=== PATIENT | male | born 1990 | race Two or more races ===

== ENCOUNTER 2025-01-06 10:08 | Emergency (ER) | payer BC, OTHER ==
[~2025-01-06] VITALS: Ht 177.8 cm; Wt 192.0 kg
[~2025-01-06 10:08] MED LIST: UNK PAIN MED; UNKNOWN ABX
--- NOTE | 2025-01-06 10:29 | ED.PDOC ---
GI ASSESSMENT HPI Comments 34y M who presents to the ED for chief complaint of abdominal pain. Pt states he has been having abdominal pain since last night PM. Pt states he had EGD procedure yesterday and states since, he has been having RUQ abdominal pain. Pt states the pain is 10/10, constant, non-radiating burning in nature, with no associated exacerbating or relieving factors. Pt has associate nausea and vomiting but otherwise diarrhea, fever, cough, chills or associated symptoms. Pt has noted BP of 131/98 with otherwise stable vitals. . Pt denies changes to diet or recent travel. Pt otherwise denies any other symptoms at this time Chief Complaint: Abdominal Pain Time Seen by MD: 10:28 Primary Care Provider: DENISE/DR NIXON Reviewed Notes: Medications, Allergies Allergies: Coded Allergies: NO KNOWN ALLERGIES (Unverified , 11/06/10) Home Meds Reported Medications [Unk Pain Med] No Conflict Check 11/14/10 [Unknown Abx] No Conflict Check 11/14/10 Information Source: Patient, Significant Other Mode of Arrival: Ambulatory Past Medical History PAST MEDICAL HISTORY: Denies Surgical History: Tonsillectomy Family History Family History: No family hx of DM Social History Smoker: Non-Smoker Alcohol: Denies ETOH Use Drugs: Denies Drug Use Lives In: Home All Other Systems: Reviewed and Negative (see HPI) Physical Exam General Appearance: Moderate Distress, Obese HEENT: Normal ENT Inspection, Pale Conjunt[place]ae (L), Pale Conjuntivae (R), PERRL/EOMI Neck: Full Range of Motion, Non-Tender, Normal, Normal Inspection Respiratory: Chest Non-Tender, Lungs Clear, No Accessory Muscle Use, No Respiratory Distress, Normal Breath Sounds Cardiovascular: No Edema, No JVD, No Murmur, No Gallop, Normal Peripheral Pulses, Regular Rate/Rhythm Breast Exam: Deferred Gastrointestinal: Epigastric, No Organomegaly, No Pulsatile Mass, Normal Bowel Sounds, Soft, Tenderness Genitalia: Deferred Pelvic: Deferred Rectal: Deferred Extremities: No calf tenderness, Normal capillary refill, Normal inspection, Normal range of motion, Non-tender, No pedal edema Neurologic: Alert, grinder set up operator thread II-XII nml as Tested, No Motor Deficits, Normal Affect, Normal Mood, No Sensory Deficits Cerebellar Function: Normal Reflexes: Normal Skin: Dry, Normal Color, Warm Peripheral Pulses: 1+ carotid (R), 1+ carotid (L) Lymphatic: No Adenopathy Was a procedure done? Was a procedure done?: No GI differential Dx Differential Diagnosis: Esophagitis, Gastritis/PUD, Gastroenteritis, Hernia, Pancreatitis, UTI, Dehydration, Electrolyte Imbalance, Food Poisoning, Bacterial, Viral, Hypovolemia, Anemia X-Ray, Labs, Meds, VS Vital Signs Date Time Temp Pulse Resp B/P (MAP) Pulse Ox O2 Delivery O2 Flow Rate FiO2 01/06/25 14:30 88 17 116/82 (93) 94 01/06/25 12:19 84 11 110/73 (85) 97 01/06/25 12:16 85 10 110/73 01/06/25 10:54 93 10 97 Room Air* 0 21 01/06/25 10:53 98.4 93 9 114/84 (94) 97 98.4 01/06/25 10:45 93 16 114/84 01/06/25 10:09 99.2 100 18 131/98 98 99.2 Lab Test 01/06/25 14:08 01/06/25 10:35 Range/Units Urine Color Dark yellow Yellow Urine Clarity Turbid H Clear Urine pH 5.5 5.0-9.0 Urine Specific [place] 1.029 1.001-1.035 Urine Protein 1+ H Negative Urine Ketones 4+ H Negative Urine Blood Negative Negative /uL Urine Nitrite Negative Negative Urine Bilirubin Negative Negative Urine Urobilinogen 2 H Negative mg/dL Urine Leukocyte Esterase Negative Negative /uL Urine RBC 1 0 - 3 /hpf Urine Microscopic WBC 15 H 0-3 /HPF Urine Squamous Epithelial Cells Few <5 /hpf Urine Bacteria None seen None Seen /hpf Urine Mucus Few None Seen Urine Glucose Trace Normal mg/dL White Blood Count 3.8 L 4.4-10.8 10^3/uL Red Blood Count 4.53 4.5-5.90 10^6/uL Hemoglobin 9.1 L 13.5-17.5 g/dL Hematocrit 29.7 L 41.0-53.0 % Mean Corpuscular Volume 65.6 L 80.0-100.0 fL Mean Corpuscular Hemoglobin 20.0 L 28.0-32.0 pg Mean Corpuscular Hemoglobin Concent 30.5 L 32.0-36.0 g/dL Red Cell Distribution Width 16.7 H 11.8-14.3 % Platelet Count 235 140-450 10^3/uL Mean Platelet Volume 8.7 6.9-10.8 fL Neutrophils (%) (Auto) 63.1 37.0-80.0 % Lymphocytes (%) (Auto) 27.4 10.0-50.0 % Monocytes (%) (Auto) 8.9 0.0-12.0 % Eosinophils (%) (Auto) 0.2 0.0-7.0 % Basophils (%) (Auto) 0.4 0.0-2.0 % Neutrophils # (Auto) 2.4 1.6-8.6 10 ^3/uL Lymphocytes # (Auto) 1.0 0.4-5.4 10 ^3/uL Monocytes # (Auto) 0.3 0-1.3 10 ^3/uL Eosinophils # (Auto) 0 0-0.8 10 ^3/uL Basophils # (Auto) 0 0-0.2 10 ^3/uL Nucleated Red Blood Cells 0.2 % Platelet Estimate Adequate Hypochromasia (manual) Slight Microcytosis Moderate Prothrombin Time 11.9 H 9.3-11.8 sec Prothrombin Time INR 1.14 0.9-1.15 Activated Partial Thromboplast Time 25.8 24.5-34.5 SEC Sodium Level 139 136-145 mmol/L Potassium Level 3.6 3.5-5.1 mmol/L Chloride Level 102 98-107 mmol/L Carbon Dioxide Level 24 20-31 mmol/L Anion Gap 13 5-15 Blood Urea Nitrogen 7 L 9-23 mg/dL Creatinine 0.74 0.700-1.30 mg/dL Glomerular Filtration Rate Calc 122 >90 mL/min BUN/Creatinine Ratio 9.5 L 10.0-20.0 Serum Glucose 160 H 74-106 mg/dL Calcium Level 9.4 8.7-10.4 mg/dL Magnesium Level 1.7 1.6-2.6 mg/dL Total Bilirubin 1.4 H 0.2-1.0 mg/dL Aspartate Amino Transferase (AST) 18 13-40 U/L Alanine Aminotransferase (ALT) 14 7-40 U/L Alkaline Phosphatase 78 46-116 U/L Total Protein 7.5 5.7-8.2 g/dL Albumin 4.8 3.2-4.8 g/dL Lipase 31 12-53 U/L Current Medications Medications (Trade) Dose Ordered Sig/Sasha Route Start Time Stop Time Status Last Admin Ondansetron HCl (Zofran) 4 mg ONCE ONCE IV 01/06/25 10:30 01/06/25 10:31 DC 01/06/25 10:42 Sodium Chloride 1,000 ml @ 1,000 mls/hr Q1H ONCE IVB 01/06/25 10:30 01/06/25 11:30 DC 01/06/25 10:41 Hydromorphone HCl (Dilaudid Injection) 0.5 mg ONCE ONCE IV 01/06/25 10:30 01/06/25 10:31 DC 01/06/25 10:45 X-Ray, Labs, Meds, VS Comment Course in the emergency department eventful patient came in because of severe abdominal pain with nausea and vomiting and very pale the patient yesterday had his EGD the found that he had an ulcer and was cauterized this morning he came up because of severe abdominal pain Blood pressure 131/98 CBC 3800 with 63% neutrophils H&H 9.1 and 29.7 with microcytosis INR 1.14 Magnesium 1.7 Lipase 31 CMP negative Urine negative Patient will be admitted for further care Time of 1ST Reevaluation: 10:28 Reevaluation 1ST: Unchanged Time of 2ND Reevaluation: 15:51 Reevaluation 2ND: Unchanged Patient Education/Counseling: Diagnosis, Treatment, Prognosis Family Education/Counseling: Diagnosis, Treatment, Prognosis, Other ( at bedside) SEPSIS Sepsis Screen Date sepsis recognized/suspect: Jan 06, 2025 Time Sepsis recognized/suspect: 1011 Recent Procedure: No On Antibiotic Therapy: No Respiratory Rate >20: No Heart Rate >90: Yes Temp<36 C (96.8 F) or >38.3 C: No SBP <90 or MAP <65 mmHG: No New Acute Mental Status Change: No Is the patient on CPAP, BIPAP,: No Physician Orders Heplock Iv (01/06/25 10:25) Vital Signs Date Time Temp Pulse Resp B/P (MAP) Pulse Ox O2 Delivery O2 Flow Rate FiO2 01/06/25 14:30 88 17 116/82 (93) 94 01/06/25 12:19 84 11 110/73 (85) 97 01/06/25 12:16 85 10 110/73 01/06/25 10:54 93 10 97 Room Air* 0 21 01/06/25 10:53 98.4 93 9 114/84 (94) 97 98.4 01/06/25 10:45 93 16 114/84 01/06/25 10:09 99.2 100 18 131/98 98 99.2 Laboratory Tests Test 01/06/25 10:35 White Blood Count 3.8 10^3/uL (4.4-10.8) L Medications Medications Dose Ordered Sig/Sasha Route Start Time Stop Time Status Last Admin Dose Admin Hydromorphone HCl 0.5 mg ONCE ONCE IV 01/06/25 10:30 01/06/25 10:31 DC 01/06/25 10:45 Ondansetron HCl 4 mg ONCE ONCE IV 01/06/25 10:30 01/06/25 10:31 DC 01/06/25 10:42 Sodium Chloride 1,000 ml @ 1,000 mls/hr Q1H ONCE IVB 01/06/25 10:30 01/06/25 11:30 DC 01/06/25 10:41 Departure 1 Departure Time of Disposition: 15:52 Impression: Primary Impression: Peptic ulcer disease Additional Impressions: Acute abdominal pain Anemia Disposition: ADMITTED INPATIENT Condition: Fair Critical Care Note Critical Care Time?: No Stability Stability form required: Yes Heart Score Heart Score: Heart Score Response (Comments) Value History N/A 0 EKG N/A 0 Age <45 0 Risk Factors No known risk factors 0 Troponin N/A 0 Total 0 I personally scribed for JOSE STERN MD ([email or web address]) on 01/06/25 at 10:29. Electronically submitted by Christopher Grcaia ([email or web address]). JOSE STERN MD Jan 06, 2025 10:29
[2025-01-06] MEDS: SODIUM CHLORIDE 0.9% 1,000 ML IVB ONE (10:41)
[2025-01-06] MEDS: ONDANSETRON HCL 4 MG/2 ML VIAL IV ONE (10:42)
[2025-01-06] MEDS: HYDROmorphone HCL 2 MG/ML VL/or syr IV ONE ×2 (10:45→18:05)
[2025-01-06 10:53] VITALS: TEMP 98.4
[2025-01-06 10:54] VITALS: PULSE 93; RESP 10; O2SAT 97
[2025-01-06 11:04] LABS: Hematocrit 29.7 % (41.0-53.0); Hemoglobin 9.1 g/dL (13.5-17.5); Mean Corpuscular Hemoglobin 20.0 pg (28.0-32.0); Mean Corpuscular Volume 65.6 fL (80.0-100.0); Nucleated Red Blood Cells % 0.2 %
[2025-01-06 11:12] LABS: INR 1.14 (0.9-1.15); Partial Thromboplastin Time 25.8 SEC (24.5-34.5); Prothrombin Time 11.9 sec (9.3-11.8)
[2025-01-06 11:13] LABS: Alanine Aminotransferase 14 U/L (7-40); Albumin 4.8 g/dL (3.2-4.8); Alkaline Phosphatase 78 U/L (46-116); Anion Gap 13 (5-15); BUN/Creatinine Ratio 9.5 (10.0-20.0); Blood Urea Nitrogen 7 mg/dL (9-23); Calcium 9.4 mg/dL (8.7-10.4); Carbon Dioxide 24 mmol/L (20-31); Chloride 102 mmol/L (98-107); Glucose 160 mg/dL (74-106); Lipase 31 U/L (12-53); Magnesium 1.7 mg/dL (1.6-2.6); Potassium 3.6 mmol/L (3.5-5.1); Sodium 139 mmol/L (136-145); Total Protein 7.5 g/dL (5.7-8.2)
[2025-01-06 11:14] LABS: Bilirubin, Total 1.4 mg/dL (0.2-1.0)
[2025-01-06 15:27] LABS: Urine Protein, UAD 1+ (Negative)
[2025-01-06] MEDS: IOHEXOL 300 MG/ML 100ML BOTTLE IJ ONE (16:49)
--- NOTE | 2025-01-06 17:46 | DVH ---
COMPUTERIZED TOMOGRAPHY ABDOMEN WITH CONTRAST REASON FOR EXAM: Acute abdominal pain possible perforated ulcer COMPARISON: CT ABD/PEL W-IV on DOS: 10/22/24, CT ABD/PEL W - IV on DOS: 10/22/24 TECHNIQUE: The exam was performed on a Multidetector scanner. Spiral scans were acquired from the jennifer phragm to the iliac bones after administration of IV contrast. 2-D coronal and sagittal reformatted i mages were provided. Radiation optimization: All CT scans at this facility use at least one of these dose optimization techniques: Automated exposure control mA and/or kV adjustment per patient size (in cludes targeted exams where dose is matched to clinical indication) or iterative reconstruction. CONTRAST ADMINISTRATION: 90 mL omnipaque 300 intravenously RADIATION DOSE: CTDI: 21 mGy DLP: 1247 mGy-cm FINDINGS: The visualized lung bases are grossly clear. There is no pleural effusion. There is no pericardial e ffusion. There is thickening of the distal esophagus suggestive of esophagitis. The spleen is not enlarged. The liver is normal in size and contour. There is hypodensity adjacent to the falciform ligament likely representing focal fatty infiltration. The gallbladder is surgically a bsent. The pancreas is within normal limits. The adrenal glands are normal. The kidneys enhance symme trically. No solid renal mass is identified. There is no hydronephrosis of either kidney. The urinary bladder appears thick walled, concerning for cystitis. The prostate and seminal vesicles are within normal limits. There is no significant colonic stool burden. The appendix is normal. There is no pat hologic distention of the small bowel to suggest bowel obstruction. There is no pneumoperitoneum. Th ere is no free fluid in the abdomen or pelvis. There is no pathologic lymphadenopathy by size criter ia. There is no abdominal aortic aneurysm. No acute osseous abnormality is identified. There is mode rate disc height loss with endplate hypertrophy L3-S1 causing at least moderate spinal canal narrowin g at L3-L4 and L4-L5. IMPRESSION: No intra-abdominal free fluid or gas to suggest perforated viscus. Thickening of the distal esophagus suggestive of esophagitis. Correlate clinically for possible GERD . Thick-walled urinary bladder suggestive of cystitis. Correlate clinically and with urinalysis. Moderate degenerative disc disease L3-S1 with endplate hypertrophy causing at least moderate spinal c anal narrowing at L3-L4 and L4-L5.
[2025-01-06] MEDS: PANTOPRAZOLE 40 MG/10 ML VIAL INJ IV ONE (18:04)
[2025-01-06] MEDS: SUCRALFATE 1 GM/10 ML ORAL SUSP PO ONE (18:05)
[2025-01-06] MEDS: LIDOCAINE VISCOUS 2% 15ML UD PO ONE (18:07)
[2025-01-06] MEDS: MAALOX PLUS or MAALOX 30 ML PO ONE (18:07)
[2025-01-06] MEDS ORDERED: PANT40TA2 PO (18:48)
[2025-01-06] MEDS ORDERED: LIDO2SOL26 MT (18:53)
[2025-01-06] MEDS ORDERED: SUCR1SUS26 PO (18:55)
[2025-01-06] MEDS ORDERED: HYDR-4902 PO (19:07)
[2025-01-06] MEDS ORDERED: NALO4SPR2 (19:09)
--- NOTE | 2025-01-06 19:29 | DVHDS2 ---
Discharge Summary Date of Admission Date of Discharge: Jan 06, 2025 Labs/Diagnostic Data: Laboratory Results Test 01/06/25 14:08 01/06/25 10:35 Urine Color Dark yellow (Yellow) Urine Clarity Turbid (Clear) Urine pH 5.5 (5.0-9.0) Urine Specific [place] 1.029 (1.001-1.035) Urine Protein 1+ (Negative) Urine Ketones 4+ (Negative) Urine Blood Negative /uL (Negative) Urine Nitrite Negative (Negative) Urine Bilirubin Negative (Negative) Urine Urobilinogen 2 mg/dL (Negative) Urine Leukocyte Esterase Negative /uL (Negative) Urine RBC 1 /hpf (0 - 3) Urine Microscopic WBC 15 /HPF (0-3) Urine Squamous Epithelial Cells Few /hpf (<5) Urine Bacteria None seen /hpf (None Seen) Urine Mucus Few (None Seen) Urine Glucose Trace mg/dL (Normal) White Blood Count 3.8 10^3/uL (4.4-10.8) Red Blood Count 4.53 10^6/uL (4.5-5.90) Hemoglobin 9.1 g/dL (13.5-17.5) Hematocrit 29.7 % (41.0-53.0) Mean Corpuscular Volume 65.6 fL (80.0-100.0) Mean Corpuscular Hemoglobin 20.0 pg (28.0-32.0) Mean Corpuscular Hemoglobin Concent 30.5 g/dL (32.0-36.0) Red Cell Distribution Width 16.7 % (11.8-14.3) Platelet Count 235 10^3/uL (140-450) Mean Platelet Volume 8.7 fL (6.9-10.8) Neutrophils (%) (Auto) 63.1 % (37.0-80.0) Lymphocytes (%) (Auto) 27.4 % (10.0-50.0) Monocytes (%) (Auto) 8.9 % (0.0-12.0) Eosinophils (%) (Auto) 0.2 % (0.0-7.0) Basophils (%) (Auto) 0.4 % (0.0-2.0) Neutrophils # (Auto) 2.4 10 ^3/uL (1.6-8.6) Lymphocytes # (Auto) 1.0 10 ^3/uL (0.4-5.4) Monocytes # (Auto) 0.3 10 ^3/uL (0-1.3) Eosinophils # (Auto) 0 10 ^3/uL (0-0.8) Basophils # (Auto) 0 10 ^3/uL (0-0.2) Nucleated Red Blood Cells 0.2 % Platelet Estimate Adequate Hypochromasia (manual) Slight Microcytosis Moderate Prothrombin Time 11.9 sec (9.3-11.8) Prothrombin Time INR 1.14 (0.9-1.15) Activated Partial Thromboplast Time 25.8 SEC (24.5-34.5) Sodium Level 139 mmol/L (136-145) Potassium Level 3.6 mmol/L (3.5-5.1) Chloride Level 102 mmol/L (98-107) Carbon Dioxide Level 24 mmol/L (20-31) Anion Gap 13 (5-15) Blood Urea Nitrogen 7 mg/dL (9-23) Creatinine 0.74 mg/dL (0.700-1.30) Glomerular Filtration Rate Calc 122 mL/min (>90) BUN/Creatinine Ratio 9.5 (10.0-20.0) Serum Glucose 160 mg/dL (74-106) Calcium Level 9.4 mg/dL (8.7-10.4) Magnesium Level 1.7 mg/dL (1.6-2.6) Total Bilirubin 1.4 mg/dL (0.2-1.0) Aspartate Amino Transferase (AST) 18 U/L (13-40) Alanine Aminotransferase (ALT) 14 U/L (7-40) Alkaline Phosphatase 78 U/L (46-116) Total Protein 7.5 g/dL (5.7-8.2) Albumin 4.8 g/dL (3.2-4.8) Lipase 31 U/L (12-53) Other Laboratory Tests 01/06/25 10:35 Brief Hx & Hospital Course: Patient is a 34-year-old male 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 Patient was recently seen at [facility] and underwent EGD the day prior to admission. Patient presented today because he ended up having severe epigastric pain for few episodes of vomiting some blood. 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 Chart review shows that patient was seen at [facility] and had an EGD in November 2024 which showed grade D esophagitis. Patient states he does not take any medications as his PCP discontinued them. Patient notes that he was previously on Protonix but currently is not taking anything. On arrival, patient's vitals were within normal limits. Hemoglobin was noted to be 9.1. BMP was within normal limits. Patient underwent CT abdomen pelvis with IV contrast which showed thickening of the distal esophagus suggestive of esophagitis. No intra-abdominal free fluid or gas was noted. Patient was given Protonix, sucralfate, Mylanta, viscous lidocaine, 1 L NS bolus and Dilaudid. Patient was monitored for several hours. Patient had resolution of pain. His GI physician was consulted and plan of care was discussed. Patient was prescribed Protonix 40 mg p.o. twice daily, viscous lidocaine, sucralfate, and [place] for severe esophagitis pain. Patient has an appointment scheduled with GI. Patient advised to have a clear liquid diet and advance slowly with soft diet. Patient is advised to avoid large food pieces or hard food pieces. Patient was discharged in stable condition. [facility] case management arrange follow-up appointments. Condition at Discharge: Good Final Diagnosis/Problems List Esophagitis Grade D Secondary Diagnosis: Morbid Obesity Discharge Disposition: Home Discharge Instruct/Medications Diet: See Comment Diet comment: Liquid diet , advance to soft like mashed potatoes, rice as tolerated. Avoid spices, hard foods, large bites. Activity: See Comment Medications: Protonix Sucralfate Viscous Lidocaine Scheduled Lidocaine HCl (Mouth-Throat) (Lidocaine HCl Viscous), 2 % MT TID Naloxone HCl (Narcan), 4 MG NA ONCE Pantoprazole Sodium Sesquihydr (Protonix), 40 MG PO BID Sucralfate (Carafate Susp), 10 ML PO QID Scheduled PRN Hydrocodone-Acetaminophen (Hydrocodone Bitartrate/AC 5-325 mg), 1 TAB PO Q6HPRN PRN Miscellaneous Medications [Unk Pain Med], (Reported) [Unknown Abx], (Reported) Discharge Statement: "Patient was advised to return to the ER or call 911 if any headaches, dizziness, shortness of breath, chest pain, abdominal pain, bleeding, fevers, or worsening of medical condition. Patient was counseled about treatment plan, medications, possible side effects, patientverbalized understanding. All questions were answered to the best of my ability. This discharge took greater then 30 minutes in planning, reviewing documentation, counseling the patient, and discussing with other team members." ASSESSMENT ASSESSMENT Assessment Esophagitis Grade D KRISTIN ALAS DO Jan 06, 2025 19:29
[2025-01-06 19:30] VITALS: BP 108/77; PULSE 84; RESP 7; O2SAT 97
== END 2025-01-06 21:11 | disposition home or self-care (01) ==
LOC: ER 10:08
DX: K27.9 Peptic ulcer, site unspecified, unspecified as acute or chronic, without hemorrhage or perforation (principal); D64.9 Anemia, unspecified; Z79.899 Other long term (current) drug therapy; Z90.89 Acquired absence of other organs
CPT/HCPCS: 36415; 74177; 80053; 81001; 83690; 83735; 85025; 85610; 85730; 96361; 96374; 96375; 96376; 99285; J1171; J2405; J2470; J7030; Q9967

== ENCOUNTER 2025-01-28 18:49 | Emergency (ER) | payer OTHER ==
[~2025-01-28] VITALS: Ht 177.8 cm; Wt 92.2 kg
[~2025-01-28 18:49] MED LIST changes: +HYDR-4902 PO; +LIDO2SOL26 MT; +NALO4SPR2; +PANT40TA2 PO; +SUCR1SUS26 PO
--- NOTE | 2025-01-28 19:41 | ED.PDOC ---
GI ASSESSMENT HPI Comments 34-year-old male who came to ER for abdominal pain. Patient has a history of esophagitis, underwent endoscopy 3 weeks ago at [facility], had episodes of nausea and vomiting after the procedure, but was relieved with medications. For the past 2 days, epigastric abdominal pain, associated with bouts of nausea and vomiting and blood-tinged vomitus/hematemesis Chief Complaint: Abdominal Pain Time Seen by MD: 19:40 Primary Care Provider: DENISE/DR NIXON Reviewed Notes: Nurses Notes Allergies: Coded Allergies: NO KNOWN ALLERGIES (Unverified , 11/06/10) Home Meds Active Scripts Sucralfate (CARAFATE SUSP) 1 Gm/10 Ml Ss, 10 ML PO QID PRN, #1200 ML 3 Refills Prov:PATRICK JIMENES MD 01/28/25 Naloxone HCl (Narcan) 4 Mg/0.1 Ml Spr, 4 MG NA ONCE for 1 Day, #1 SPRAY Prov:KRISTIN ALAS DO 01/06/25 Hydrocodone-Acetaminophen (Hydrocodone Bitartrate/AC 5-325 mg) 1 Tab Tab, 1 TAB PO Q6HPRN PRN, #12 TAB 0 Refills Take for severe pain. Prov:KRISTIN ALAS DO 01/06/25 Sucralfate (CARAFATE SUSP) 1 Gm/10 Ml Ss, 10 ML PO QID, #1200 ML 3 Refills Prov:KRISTIN ALAS DO 01/06/25 Lidocaine HCl (Mouth-Throat) (Lidocaine HCl Viscous) 2 % Maddy, 2 % MT TID for 30 Days, #150 ML 2 Refills Tkae 10ml three times a day and swallow to help with pain. Prov:KRISTIN ALAS DO 01/06/25 Pantoprazole Sodium Sesquihydr (Protonix) 40 Mg Tab, 40 MG PO BID, #60 TAB 1 Refill Prov:KRISTIN ALAS DO 01/06/25 Reported Medications [Unk Pain Med] No Conflict Check 11/14/10 [Unknown Abx] No Conflict Check 11/14/10 Information Source: Patient Mode of Arrival: Ambulatory Timing: Days Duration: Intermittent Quality: Sharp, Stabbing Vomitus: Watery, Streaking Blood Recent: Other (Endoscopy) Recent Hx of: Other (Esophagitis) Associated sign and symptoms: Nausea, Vomiting, Hematemesis, Abdominal Pain Past Medical History PAST MEDICAL HISTORY: Denies Past Medical History (Other): Esophagitis Surgical History: Cholecystectomy, Tonsillectomy Family History Family History: No family hx of DM Social History Smoker: Non-Smoker Alcohol: Denies ETOH Use Drugs: Denies Drug Use Lives In: Home Constitutional: denies: chills, diaphoresis, fatigue, fever, malaise, sweats, weakness, others EENTM: denies: blurred vision, double vision, ear bleeding, ear discharge, ear drainage, ear pain, ear ringing, eye pain, eye redness, hearing loss, mouth pain, mouth swelling, nasal discharge, nose bleeding, nose congestion, nose pain, photophobia, tearing, throat pain, throat swelling, voice changes, others Respiratory: denies: cough, hemoptysis, orthopnea, SOB at rest, shortness of breath, SOB with excertion, stridor, wheezing, others Cardiovascular: denies: chest pain, dizzy spells, diaphoresis, Dyspnea on exertion, edema, irregular heart beat, left arm pain, lightheadedness, palpitations, PND, syncope, others Gastrointestinal: reports: abdominal pain, hematemesis, nausea, vomiting; den ies: abdomen distended, blood streaked bowels, constipated, diarrhea, dysphagia, difficulty swallowing, melena, poor appetite, poor fluid intake, rectal bleeding, rectal pain, others Genitourinary: denies: burning, dysuria, flank pain, frequency, hematuria, incontinence, penile discharge, penile sore, pain, testicle pain, testicle swelling, urgency, others Neurological: denies: dizziness, fainting, headache, left sided numbness, left sided weakness, numbness, paresthesia, pre-existing deficit, right sided numbness, right sided weakness, seizure, speech problems, tingling, tremors, weakness, others Musculoskeletal: denies: back pain, gout, joint pain, joint swelling, muscle pain, muscle stiffness, neck pain, others Integumetry: denies: bruises, change in color, change in hair/nails, dryness, laceration, lesions, lumps, rash, wounds, others Allergic/Immunocompromised: denies: Difficulty Healing, Frequent Infections, Hives, Itching, others Hematologic/Lymphatic: denies: anemia, blood clots, easy bleeding, easy bruising, swollen glands, others Endocrine: denies: excessive hunger, excessive sweating, excessive thirst, excessive urination, flushing, intolerance to cold, intolerance to heat, unexplained weight gain, unexplained weight loss, others Psychiatric: denies: anxiety, bipolar disorder, depression, hopeless, panic disorder, schizophrenia, sleepless, suicidal, others Physical Exam General Appearance: No Apparent Distress, Normal HEENT: Normal ENT Inspection, Pharynx Normal, TMs Normal Neck: Full Range of Motion, Non-Tender, Normal, Normal Inspection Respiratory: Chest Non-Tender, Lungs Clear, No Accessory Muscle Use, No Respiratory Distress, Normal Breath Sounds Cardiovascular: No Edema, No JVD, No Murmur, No Gallop, Normal Peripheral Pulses, Regular Rate/Rhythm Breast Exam: Deferred Gastrointestinal: Epigastric, No Organomegaly, No Pulsatile Mass, Normal Bowel Sounds, Soft, Tenderness Genitalia: Deferred Pelvic: Deferred Rectal: Deferred Extremities: No calf tenderness, Normal capillary refill, Normal inspection, Normal range of motion, Non-tender, No pedal edema Musculoskeletal : Apperance: Normal Neurologic: Alert, cloth folder hand II-XII nml as Tested, No Motor Deficits, Normal Affect, Normal Mood, No Sensory Deficits Cerebellar Function: Normal Reflexes: Normal Skin: Dry, Normal Color, Warm Lymphatic: No Adenopathy Was a procedure done? Was a procedure done?: No GI differential Dx Differential Diagnosis: Diverticular disease, Gastritis/PUD, Gastroenteritis, GI hemorrhage, Pancreatitis, UTI, Urolithiasis, Anemia, Esophageal Varicies X-Ray, Labs, Meds, VS Vital Signs Date Time Temp Pulse Resp B/P (MAP) Pulse Ox O2 Delivery O2 Flow Rate FiO2 01/28/25 23:15 99 19 121/83 01/28/25 23:00 99 18 100 Room Air* 0 21 21 01/28/25 22:59 98.4 99 18 121/83 (96) 100 98.4 01/28/25 20:57 97 Room Air* 0 21 01/28/25 20:56 97.7 100 16 141/83 (102) 98 97.7 01/28/25 20:55 73 12 133/72 01/28/25 18:55 98.4 110 18 115/70 98 98.4 Lab Test 01/28/25 19:47 01/28/25 19:05 Range/Units White Blood Count 5.0 4.4-10.8 10^3/uL Red Blood Count 5.37 4.5-5.90 10^6/uL Hemoglobin 10.2 L 13.5-17.5 g/dL Hematocrit 32.9 L 41.0-53.0 % Mean Corpuscular Volume 61.4 L 80.0-100.0 fL Mean Corpuscular Hemoglobin 18.9 L 28.0-32.0 pg Mean Corpuscular Hemoglobin Concent 30.8 L 32.0-36.0 g/dL Red Cell Distribution Width 16.7 H 11.8-14.3 % Platelet Count 294 140-450 10^3/uL Mean Platelet Volume 8.6 6.9-10.8 fL Neutrophils (%) (Auto) 74.5 37.0-80.0 % Lymphocytes (%) (Auto) 16.6 10.0-50.0 % Monocytes (%) (Auto) 8.6 0.0-12.0 % Eosinophils (%) (Auto) 0.0 0.0-7.0 % Basophils (%) (Auto) 0.3 0.0-2.0 % Neutrophils # (Auto) 3.8 1.6-8.6 10 ^3/uL Lymphocytes # (Auto) 0.8 0.4-5.4 10 ^3/uL Monocytes # (Auto) 0.4 0-1.3 10 ^3/uL Eosinophils # (Auto) 0 0-0.8 10 ^3/uL Basophils # (Auto) 0 0-0.2 10 ^3/uL Nucleated Red Blood Cells 0.1 % Sodium Level 144 136-145 mmol/L Potassium Level 4.1 3.5-5.1 mmol/L Chloride Level 104 98-107 mmol/L Carbon Dioxide Level 27 20-31 mmol/L Anion Gap 13 5-15 Blood Urea Nitrogen 19 9-23 mg/dL Creatinine 1.17 0.700-1.30 mg/dL Glomerular Filtration Rate Calc 84 >90 mL/min BUN/Creatinine Ratio 16.2 10.0-20.0 Serum Glucose 221 H 74-106 mg/dL Calcium Level 10.0 8.7-10.4 mg/dL Total Bilirubin 1.4 H 0.2-1.0 mg/dL Aspartate Amino Transferase (AST) 15 13-40 U/L Alanine Aminotransferase (ALT) 20 7-40 U/L Alkaline Phosphatase 100 46-116 U/L Total Protein 8.1 5.7-8.2 g/dL Albumin 5.2 H 3.2-4.8 g/dL Lipase 26 12-53 U/L POC Glucose 224 H 70-106 mg/dl Current Medications Medications (Trade) Dose Ordered Sig/Sasha Route Start Time Stop Time Status Last Admin Ondansetron HCl (Zofran Po) 8 mg ONCE ONCE PO 01/28/25 19:30 01/28/25 19:31 DC 01/28/25 19:42 Al Hydrox/Mg Hydrox/Simethicone (Maalox Plus) 30 ml ONCE ONCE PO 01/28/25 19:30 01/28/25 19:31 DC 01/28/25 19:42 Famotidine (Pepcid Tablet) 40 mg ONCE ONCE PO 01/28/25 19:30 01/28/25 19:31 DC 01/28/25 19:42 Sodium Chloride 1,000 ml @ 1,000 mls/hr Q1H ONCE IV 01/28/25 20:45 01/28/25 21:44 DC 01/28/25 20:55 Hydromorphone HCl (Dilaudid Injection) 1 mg ONCE ONCE IV 01/28/25 20:45 01/28/25 20:46 DC 01/28/25 20:55 Metoclopramide HCl (Reglan Injection) 10 mg ONCE ONCE IV 01/28/25 20:45 01/28/25 20:46 DC 01/28/25 20:56 Diphenhydramine HCl (Benadryl Injection) 25 mg ONCE ONCE IV 01/28/25 20:45 01/28/25 20:46 DC 01/28/25 20:55 Time of 1ST Reevaluation: 19:37 Reevaluation 1ST: Unchanged Patient Education/Counseling: Diagnosis, Treatment Family Education/Counseling: No Family Present SEPSIS Sepsis Screen Date sepsis recognized/suspect: Jan 28, 2025 Time Sepsis recognized/suspect: 1856 Recent Procedure: No On Antibiotic Therapy: No Respiratory Rate >20: No Heart Rate >90: Yes Temp<36 C (96.8 F) or >38.3 C: No SBP <90 or MAP <65 mmHG: No New Acute Mental Status Change: No Is the patient on CPAP, BIPAP,: No Vital Signs Date Time Temp Pulse Resp B/P (MAP) Pulse Ox O2 Delivery O2 Flow Rate FiO2 01/28/25 23:15 99 19 121/83 01/28/25 23:00 99 18 100 Room Air* 0 21 21 01/28/25 22:59 98.4 99 18 121/83 (96) 100 98.4 01/28/25 20:57 97 Room Air* 0 21 01/28/25 20:56 97.7 100 16 141/83 (102) 98 97.7 01/28/25 20:55 73 12 133/72 01/28/25 18:55 98.4 110 18 115/70 98 98.4 Laboratory Tests Test 01/28/25 19:47 White Blood Count 5.0 10^3/uL (4.4-10.8) Medications Medications Dose Ordered Sig/Sasha Route Start Time Stop Time Status Last Admin Dose Admin Al Hydrox/Mg Hydrox/Simethicone 30 ml ONCE ONCE PO 01/28/25 19:30 01/28/25 19:31 DC 01/28/25 19:42 Diphenhydramine HCl 25 mg ONCE ONCE IV 01/28/25 20:45 01/28/25 20:46 DC 01/28/25 20:55 Famotidine 40 mg ONCE ONCE PO 01/28/25 19:30 01/28/25 19:31 DC 01/28/25 19:42 Hydromorphone HCl 1 mg ONCE ONCE IV 01/28/25 20:45 01/28/25 20:46 DC 01/28/25 20:55 Metoclopramide HCl 10 mg ONCE ONCE IV 01/28/25 20:45 01/28/25 20:46 DC 01/28/25 20:56 Ondansetron HCl 8 mg ONCE ONCE PO 01/28/25 19:30 01/28/25 19:31 DC 01/28/25 19:42 Sodium Chloride 1,000 ml @ 1,000 mls/hr Q1H ONCE IV 01/28/25 20:45 01/28/25 21:44 DC 01/28/25 20:55 Departure 1 Departure Time of Disposition: 21:30 Impression: Primary Impression: Acute abdominal pain Additional Impression: Diabetic gastroparesis associated with type 1 diabetes mellitus Disposition: HOME / SELF CARE / HOMELESS Condition: Stable e-Prescriptions Sucralfate (CARAFATE SUSP) 1 Gm/10 Ml Ss 10 ML PO QID PRN, #1200 ML 3 Refills Prov: PATRICK JIMENES MD 01/28/25 Discharged With: Self Critical Care Note Critical Care Time?: No Stability Stability form required: No Heart Score Heart Score: Heart Score Response (Comments) Value History N/A 0 EKG N/A 0 Age N/A 0 Risk Factors N/A 0 Troponin N/A 0 Total 0 I personally scribed for PATRICK JIMENES MD ([email or web address]) on 01/28/25 at 19:41. Electronically submitted by Charlie Elias ([employer]). I personally scribed for PATRICK JIMENES MD ([email or web address]) on 01/28/25 at 19:46. Electronically submitted by Charlie Elias ([email or web address]). PATRICK JIMENES MD Jan 28, 2025 19:41
[2025-01-28] MEDS: ONDANSETRON ODT 4 MG TAB PO ONE (19:42)
[2025-01-28] MEDS: MAALOX PLUS or MAALOX 30 ML PO ONE (19:42)
[2025-01-28] MEDS: FAMOTIDINE 20 MG TAB PO ONE (19:42)
[2025-01-28 20:11] LABS: Hematocrit 32.9 % (41.0-53.0); Hemoglobin 10.2 g/dL (13.5-17.5); Mean Corpuscular Hemoglobin 18.9 pg (28.0-32.0); Mean Corpuscular Volume 61.4 fL (80.0-100.0); Nucleated Red Blood Cells % 0.1 %
[2025-01-28 20:35] LABS: Alanine Aminotransferase 20 U/L (7-40); Albumin 5.2 g/dL (3.2-4.8); Alkaline Phosphatase 100 U/L (46-116); Anion Gap 13 (5-15); BUN/Creatinine Ratio 16.2 (10.0-20.0); Bilirubin, Total 1.4 mg/dL (0.2-1.0); Blood Urea Nitrogen 19 mg/dL (9-23); Calcium 10.0 mg/dL (8.7-10.4); Carbon Dioxide 27 mmol/L (20-31); Chloride 104 mmol/L (98-107); Glucose 221 mg/dL (74-106); Lipase 26 U/L (12-53); Potassium 4.1 mmol/L (3.5-5.1); Sodium 144 mmol/L (136-145); Total Protein 8.1 g/dL (5.7-8.2)
[2025-01-28] MEDS: HYDROmorphone HCL 2 MG/ML VL/or syr IV ONE (20:55)
[2025-01-28] MEDS: diphenhdrAMINE HCL 50 MG/1 ML VL IV ONE (20:55)
[2025-01-28] MEDS: SODIUM CHLORIDE 0.9% 1,000 ML IV ONE (20:55)
[2025-01-28] MEDS: METOCLOPRAMIDE HCL 5MG/ml INJ 2ml VIAL IV ONE (20:56)
[2025-01-28 22:59] VITALS: TEMP 98.4
[2025-01-28 23:00] VITALS: PULSE 99; RESP 18; O2SAT 100
[2025-01-28] MEDS ORDERED: SUCR1SUS26 PO (23:07)
[2025-01-28 23:15] VITALS: BP 121/83; PULSE 99; RESP 19
== END 2025-01-28 23:14 | disposition home or self-care (01) ==
LOC: ER 18:49
DX: E10.43 Type 1 diabetes mellitus with diabetic autonomic (poly)neuropathy (principal); K31.84 Gastroparesis; R10.13 Epigastric pain; K20.90 Esophagitis, unspecified without bleeding; Z79.899 Other long term (current) drug therapy; Z90.49 Acquired absence of other specified parts of digestive tract; Z90.89 Acquired absence of other organs
CPT/HCPCS: 36415; 80053; 82947; 83690; 85025; 96361; 96374; 96375; 99284; J1171; J1200; J2765; J7030; Q0162; 82962

== ENCOUNTER 2025-02-02 17:32 | Emergency (ER) | payer OTHER ==
[~2025-02-02] VITALS: Ht 165.1 cm; Wt 70.3 kg
--- NOTE | 2025-02-02 18:28 | ED.PDOC ---
GI ASSESSMENT HPI Comments 34 y/o M, with PMHx of DM presents to the ED for CC of abdominal pain. Patient states, he has been experiencing diffuses abdominal pain with associated hematemesis x1week. Patient reports, having an endoscopy llanos last week; was told to have esophagitis with associated gastric ulcers. At this time patient reports, felling dizzy and fatigued. Patient comments, that he has not had a bowel movement in approximately x1week d/t poor appetite. Patient denies melena, fever, chills, faintness, or weakness. No other symptoms or modifying factors are present at this time. Chief Complaint: Abdominal Pain Time Seen by MD: 18:20 Primary Care Provider: DENISE/DR NIXON Reviewed Notes: Nurses Notes, Medications, Allergies Allergies: Coded Allergies: NO KNOWN ALLERGIES (Unverified , 11/06/10) Home Meds Active Scripts Sucralfate (CARAFATE SUSP) 1 Gm/10 Ml Ss, 10 ML PO QID PRN, #1200 ML 3 Refills Prov:PATRICK JIMENES MD 01/28/25 Naloxone HCl (Narcan) 4 Mg/0.1 Ml Spr, 4 MG NA ONCE for 1 Day, #1 SPRAY Prov:KRISTIN ALAS DO 01/06/25 Hydrocodone-Acetaminophen (Hydrocodone Bitartrate/AC 5-325 mg) 1 Tab Tab, 1 TAB PO Q6HPRN PRN, #12 TAB 0 Refills Take for severe pain. Prov:KRISTIN ALAS DO 01/06/25 Sucralfate (CARAFATE SUSP) 1 Gm/10 Ml Ss, 10 ML PO QID, #1200 ML 3 Refills Prov:KRISTIN ALAS DO 01/06/25 Lidocaine HCl (Mouth-Throat) (Lidocaine HCl Viscous) 2 % Maddy, 2 % MT TID for 30 Days, #150 ML 2 Refills Tkae 10ml three times a day and swallow to help with pain. Prov:KRISTIN ALAS DO 01/06/25 Pantoprazole Sodium Sesquihydr (Protonix) 40 Mg Tab, 40 MG PO BID, #60 TAB 1 Refill Prov:KRISTIN ALAS DO 01/06/25 Reported Medications [Unk Pain Med] No Conflict Check 7/19/11 [Unknown Abx] No Conflict Check 11/14/10 Information Source: Patient Mode of Arrival: Ambulatory Timing: Weeks Duration: Since onset Prehospital treatment: None Quality: None Vomitus: Watery, Bright Red Bood Stool: Impaction Severity: Moderate Recent: None Recent Hx of: Diabetes Pain Location: Diffuse Modifying Factors: Nothing Associated sign and symptoms: Hematemesis, Abdominal Pain Past Medical History PAST MEDICAL HISTORY: DM Surgical History: Cholecystectomy, Tonsillectomy Family History Family History: No family hx of DM Social History Smoker: Non-Smoker Alcohol: Denies ETOH Use Drugs: Denies Drug Use Lives In: Home Constitutional: denies: chills, diaphoresis, fatigue, fever, malaise, sweats, weakness, others EENTM: denies: blurred vision, double vision, ear bleeding, ear discharge, ear drainage, ear pain, ear ringing, eye pain, eye redness, hearing loss, mouth pain, mouth swelling, nasal discharge, nose bleeding, nose congestion, nose pain, photophobia, tearing, throat pain, throat swelling, voice changes, others Respiratory: denies: cough, hemoptysis, orthopnea, SOB at rest, shortness of breath, SOB with excertion, stridor, wheezing, others Cardiovascular: denies: chest pain, dizzy spells, diaphoresis, Dyspnea on exertion, edema, irregular heart beat, left arm pain, lightheadedness, palpitations, PND, syncope, others Gastrointestinal: reports: abdominal pain, blood streaked bowels, nausea, vomiting; denies: abdomen distended, constipated, diarrhea, dysphagia, difficulty swallowing, hematemesis, melena, poor appetite, poor fluid intake, rectal bleeding, rectal pain, others Genitourinary: denies: burning, dysuria, flank pain, frequency, hematuria, incontinence, penile discharge, penile sore, pain, testicle pain, testicle swelling, urgency, others Neurological: denies: dizziness, fainting, headache, left sided numbness, left sided weakness, numbness, paresthesia, pre-existing deficit, right sided numbness, right sided weakness, seizure, speech problems, tingling, tremors, weakness, others Musculoskeletal: denies: back pain, gout, joint pain, joint swelling, muscle pain, muscle stiffness, neck pain, others Integumetry: denies: bruises, change in color, change in hair/nails, dryness, laceration, lesions, lumps, rash, wounds, others Allergic/Immunocompromised: denies: Difficulty Healing, Frequent Infections, Hives, Itching, others Hematologic/Lymphatic: denies: anemia, blood clots, easy bleeding, easy bruising, swollen glands, others Endocrine: denies: excessive hunger, excessive sweating, excessive thirst, excessive urination, flushing, intolerance to cold, intolerance to heat, unexplained weight gain, unexplained weight loss, others Psychiatric: denies: anxiety, bipolar disorder, depression, hopeless, panic disorder, schizophrenia, sleepless, suicidal, others All Other Systems: Reviewed and Negative Physical Exam General Appearance: Mild Distress, Normal HEENT: Normal ENT Inspection, Pharynx Normal Neck: Full Range of Motion, Non-Tender, Normal, Normal Inspection Respiratory: Chest Non-Tender, Lungs Clear, No Accessory Muscle Use, No Respiratory Distress, Normal Breath Sounds Cardiovascular: No Edema, No Murmur, No Gallop, Normal Peripheral Pulses, Regular Rate/Rhythm Breast Exam: Deferred Gastrointestinal: Diffuse, No Organomegaly, No Pulsatile Mass, Normal Bowel S ounds, Tenderness Genitalia: Deferred Pelvic: Deferred Rectal: Deferred Extremities: No calf tenderness, Normal capillary refill, Normal inspection, Normal range of motion, Non-tender, No pedal edema Musculoskeletal : Apperance: Normal Neurologic: Alert, lathe tender II-XII nml as Tested, No Motor Deficits, Normal Affect, Normal Mood, No Sensory Deficits Cerebellar Function: Normal Reflexes: Normal Skin: Other (PALE, COOL, CLAMMY) Lymphatic: No Adenopathy Was a procedure done? Was a procedure done?: No GI differential Dx Differential Diagnosis: Diverticular disease, Gastritis/PUD, Gastroenteritis, Inflammatory BD, Other (ULCER, ESOPHAGITIS) X-Ray, Labs, Meds, VS Vital Signs Date Time Temp Pulse Resp B/P (MAP) Pulse Ox O2 Delivery O2 Flow Rate FiO2 02/02/25 22:20 110 19 132/93 (106) 99 02/02/25 20:43 98.6 115 18 132/87 (102) 99 98.6 02/02/25 18:20 98.1 111 16 127/92 (104) 100 98.1 02/02/25 18:20 111 16 100 Room Air 02/02/25 17:34 99.1 113 19 143/96 100 99.1 Lab Test 02/02/25 18:48 02/02/25 18:29 02/02/25 17:41 Range/Units White Blood Count 4.2 L 4.4-10.8 10^3/uL Red Blood Count 5.40 4.5-5.90 10^6/uL Hemoglobin 10.1 L 13.5-17.5 g/dL Hematocrit 33.5 L 41.0-53.0 % Mean Corpuscular Volume 62.1 L 80.0-100.0 fL Mean Corpuscular Hemoglobin 18.8 L 28.0-32.0 pg Mean Corpuscular Hemoglobin Concent 30.3 L 32.0-36.0 g/dL Red Cell Distribution Width 17.2 H 11.8-14.3 % Platelet Count 273 140-450 10^3/uL Mean Platelet Volume 8.6 6.9-10.8 fL Neutrophils (%) (Auto) 67.8 37.0-80.0 % Lymphocytes (%) (Auto) 23.8 10.0-50.0 % Monocytes (%) (Auto) 8.0 0.0-12.0 % Eosinophils (%) (Auto) 0.1 0.0-7.0 % Basophils (%) (Auto) 0.3 0.0-2.0 % Neutrophils # (Auto) 2.9 1.6-8.6 10 ^3/uL Lymphocytes # (Auto) 1.0 0.4-5.4 10 ^3/uL Monocytes # (Auto) 0.3 0-1.3 10 ^3/uL Eosinophils # (Auto) 0 0-0.8 10 ^3/uL Basophils # (Auto) 0 0-0.2 10 ^3/uL Nucleated Red Blood Cells 0.1 % Platelet Estimate Adequate Hypochromasia (manual) Marked Anisocytosis (manual) Moderate Microcytosis Marked Sodium Level 145 136-145 mmol/L Potassium Level 3.9 3.5-5.1 mmol/L Chloride Level 104 98-107 mmol/L Carbon Dioxide Level 24 20-31 mmol/L Anion Gap 17 H 5-15 Blood Urea Nitrogen 15 9-23 mg/dL Creatinine 0.91 0.700-1.30 mg/dL Glomerular Filtration Rate Calc 113 >90 mL/min BUN/Creatinine Ratio 16.5 10.0-20.0 Serum Glucose 166 H 74-106 mg/dL Calcium Level 10.1 8.7-10.4 mg/dL Total Bilirubin 1.3 H 0.2-1.0 mg/dL Aspartate Amino Transferase (AST) 15 13-40 U/L Alanine Aminotransferase (ALT) 16 7-40 U/L Alkaline Phosphatase 94 46-116 U/L Total Protein 7.9 5.7-8.2 g/dL Albumin 5.0 H 3.2-4.8 g/dL Lipase 27 12-53 U/L Urine Color Yellow Yellow Urine Clarity Clear Clear Urine pH 6.0 5.0-9.0 Urine Specific [place] 1.035 1.001-1.035 Urine Protein 1+ H Negative Urine Ketones 4+ H Negative Urine Blood Negative Negative /uL Urine Nitrite Negative Negative Urine Bilirubin Negative Negative Urine Urobilinogen 1+ Negative mg/dL Urine Leukocyte Esterase Negative Negative /uL Urine RBC None seen 0 - 3 /hpf Urine Microscopic WBC 2 0-3 /HPF Urine Squamous Epithelial Cells Mod <5 /hpf Urine Bacteria None seen None Seen /hpf Urine Mucus Moderate None Seen Urine Glucose 1+ H Normal mg/dL Urine Opiates Screen Neg NEGATIVE Urine Fentanyl Screen Neg NEGATIVE Urine Barbiturates Screen Neg NEGATIVE Urine Phencyclidine Screen Neg NEGATIVE Urine Amphetamines Screen Neg NEGATIVE Urine Benzodiazepines Screen Neg NEGATIVE Urine Cocaine Screen Neg NEGATIVE Urine Cannabinoids Screen Neg NEGATIVE POC Glucose 151 H 70-106 mg/dl Current Medications Medications (Trade) Dose Ordered Sig/Sasha Route Start Time Stop Time Status Last Admin Prochlorperazine Edisylate (Compazine Inj) 5 mg ONCE ONCE IV 02/02/25 18:30 02/02/25 18:31 DC 02/02/25 19:48 Pantoprazole Sodium (Protonix) 40 mg ONCE ONCE IV 02/02/25 18:30 02/02/25 18:31 DC 02/02/25 19:48 Ceftriaxone Sodium 50 ml @ 100 mls/hr ONCE ONCE IV 02/02/25 18:30 02/02/25 18:59 DC 02/02/25 19:48 Metoclopramide HCl (Reglan Injection) 10 mg ONCE ONCE IV 02/02/25 21:30 02/02/25 21:34 DC 02/02/25 23:05 Sodium Chloride 1,000 ml @ 1,000 mls/hr Q1H ONCE IV 02/02/25 22:45 02/02/25 23:44 DC 02/02/25 23:[address] [address] Ph: [phone] DIAGNOSTIC IMAGING Diagnostic Imaging Report : [id number] Signed PATIENT: STU SPENCER ACCT: [id number] UNIT: [id number] : 1990 LOC: ER ROOM / BED: / AGE / SEX: 34 / M ADM STATUS: REG ER SERVICE 182 ORDERING PHYSICIAN: TORREY MACK PROCEDURE(s): ABPL - CT AB PEL WO CON-NO ORAL OR IV REASON: abd pain ORDER NUMBER(s): [id number], ACCESSION NUMBER(s): [id number] CLINICAL HISTORY: abd pain TECHNIQUE: CT of the abdomen and pelvis was performed without IV contrast. This exam was performed according to our departmental dose optimization program. Up-to-date CT equipment and radiation dose reduction techniques are utilized as appropriate. CTDI 16 DLP 913 COMPARISON: CT CT AB PEL WITH IV CON ONLY on DOS: 01/06/25, CT ABD/PEL W-IV on DOS: 10/22/24, CT ABD/PEL W - IV on DOS: 10/22/24 FINDINGS: Abdomen/Pelvis: The spleen, adrenal glands, kidneys, pancreas, liver, bladder, and prostate gland are grossly unremarkable. The gallbladder is absent. The abdominal aorta is normal in course and caliber. There are no significant atherosclerotic calcifications. There is no free intraperitoneal air or fluid. There is no enlarged abdominal pelvic lymph node. There is no bowel wall thickening or dilatation. The appendix is normal. There is colonic diverticulosis. Other: The imaged lower thorax demonstrates moderate distal esophageal wall thickening. No acute osseous abnormality is evident. There is moderate to severe L3-L4 at L4-L5 central canal stenosis secondary to diffuse calcified disc bulges and ligamentum flavum thickening. Impression: Moderate distal esophageal wall thickening, favor esophagitis. Please correlate with clinical exam and pursue further workup if warranted. Cholecystectomy. Colonic diverticulosis. Moderate to severe spinal stenosis at L3-L4 and L4-L5. For better assessment is warranted, nonemergent lumbar spine MRI is suggested. ATED BY: HANY SALAS MD DICTATED DATE/TIME: 02/02/251913 SIGNED BY: HANY SALAS MD SIGNED DATE/TIME: 02/02/251913 CC: X-Ray, Labs, Meds, VS Comment Nausea has decreased, Spoke with Dr. Ortega with [facility], he states he can place a consult for PCP appointment in two days he recommends patient follow up in the urgent Care for hydration and antiemetics as needed Patient advised to follow up with the hard or urgent care if symptoms return Patient hemodynamically stable Time of 1ST Reevaluation: 18:50 Reevaluation 1ST: Unchanged Patient Education/Counseling: Diagnosis, Treatment, Need For Follow Up (Follow up at [facility] urgent care if symptoms return) Family Education/Counseling: No Family Present SEPSIS Sepsis Screen Date sepsis recognized/suspect: Feb 02, 2025 Time Sepsis recognized/suspect: 1733 Recent Procedure: No On Antibiotic Therapy: No Respiratory Rate >20: No Heart Rate >90: Yes Temp<36 C (96.8 F) or >38.3 C: No SBP <90 or MAP <65 mmHG: No New Acute Mental Status Change: No Is the patient on CPAP, BIPAP,: No Physician Orders Ct Ab Pel Wo Con-No Oral Or Iv (02/02/25 18:22) Vital Signs Date Time Temp Pulse Resp B/P (MAP) Pulse Ox O2 Delivery O2 Flow Rate FiO2 02/02/25 22:20 110 19 132/93 (106) 99 02/02/25 20:43 98.6 115 18 132/87 (102) 99 98.6 02/02/25 18:20 98.1 111 16 127/92 (104) 100 98.1 02/02/25 18:20 111 16 100 Room Air 02/02/25 17:34 99.1 113 19 143/96 100 99.1 Laboratory Tests Test 02/02/25 18:48 White Blood Count 4.2 10^3/uL (4.4-10.8) L Medications Medications Dose Ordered Sig/Sasha Route Start Time Stop Time Status Last Admin Dose Admin Ceftriaxone Sodium 50 ml @ 100 mls/hr ONCE ONCE IV 02/02/25 18:30 02/02/25 18:59 DC 02/02/25 19:48 Metoclopramide HCl 10 mg ONCE ONCE IV 02/02/25 21:30 02/02/25 21:34 DC 02/02/25 23:05 Pantoprazole Sodium 40 mg ONCE ONCE IV 02/02/25 18:30 02/02/25 18:31 DC 02/02/25 19:48 Prochlorperazine Edisylate 5 mg ONCE ONCE IV 02/02/25 18:30 02/02/25 18:31 DC 02/02/25 19:48 Sodium Chloride 1,000 ml @ 1,000 mls/hr Q1H ONCE IV 02/02/25 22:45 02/02/25 23:44 DC 02/02/25 23:05 Departure 1 Departure Time of Disposition: 00:21 Impression: Primary Impression: Diabetic gastroparesis associated with type 1 diabetes mellitus Additional Impressions: Anemia Qualified Codes: D50.0 - Iron deficiency anemia secondary to blood loss (chronic) Bloody emesis Qualified Codes: K92.0 - Hematemesis Disposition: 01 HOME / SELF CARE / HOMELESS Condition: Stable e-Prescriptions Metoclopramide Hcl (Reglan) 5 Mg Tab 5 MG PO TID PRN, #20 TAB Prov: TORREY MACK 02/03/25 Discharged With: Self Critical Care Note Critical Care Time?: No Stability Stability form required: No Heart Score Heart Score: Heart Score Response (Comments) Value History N/A 0 EKG N/A 0 Age N/A 0 Risk Factors N/A 0 Troponin N/A 0 Total 0 I personally scribed for TORREY MACK SPOT CHECKER ([email or web address]) on 02/02/25 at 18:28. Electronically submitted by Hafsa Dye [email or web address]). I personally scribed for TORREY MAKC SPOT CHECKER ([email or web address]) on 02/02/25 at 19:29. Electronically submitted by Hafsa Dye [email or web address]). TORREY MACK SPOT CHECKER Feb 02, 2025 18:28
[2025-02-02 19:17] LABS: Hematocrit 33.5 % (41.0-53.0); Hemoglobin 10.1 g/dL (13.5-17.5); Mean Corpuscular Hemoglobin 18.8 pg (28.0-32.0); Mean Corpuscular Volume 62.1 fL (80.0-100.0); Nucleated Red Blood Cells % 0.1 %
--- NOTE | 2025-02-02 19:17 | DVH ---
CLINICAL HISTORY: abd pain TECHNIQUE: CT of the abdomen and pelvis was performed without IV contrast. This exam was performed ac cording to our departmental dose optimization program. Up-to-date CT equipment and radiation dose red uction techniques are utilized as appropriate. CTDI 16 DLP 913 COMPARISON: CT CT AB PEL WITH IV CON ONLY on DOS: 01/06/25, CT ABD/PEL W-IV on DOS: 10/22/24, CT ABD/PE L W - IV on DOS: 10/22/24 FINDINGS: Abdomen/Pelvis: The spleen, adrenal glands, kidneys, pancreas, liver, bladder, and prostate gland are grossly unremar kable. The gallbladder is absent. The abdominal aorta is normal in course and caliber. There are no significant atherosclerotic calcifi cations. There is no free intraperitoneal air or fluid. There is no enlarged abdominal pelvic lymph node. There is no bowel wall thickening or dilatation. The appendix is normal. There is colonic diverticulo sis. Other: The imaged lower thorax demonstrates moderate distal esophageal wall thickening. No acute osseous abnormality is evident. There is moderate to severe L3-L4 at L4-L5 central canal tuan nosis secondary to diffuse calcified disc bulges and ligamentum flavum thickening. Impression: Moderate distal esophageal wall thickening, favor esophagitis. Please correlate with clinical exam an d pursue further workup if warranted. Cholecystectomy. Colonic diverticulosis. Moderate to severe spinal stenosis at L3-L4 and L4-L5. For better assessment is warranted, nonemergen t lumbar spine MRI is suggested.
[2025-02-02 19:36] LABS: Alanine Aminotransferase 16 U/L (7-40); Alkaline Phosphatase 94 U/L (46-116); Anion Gap 17 (5-15); BUN/Creatinine Ratio 16.5 (10.0-20.0); Blood Urea Nitrogen 15 mg/dL (9-23); Calcium 10.1 mg/dL (8.7-10.4); Carbon Dioxide 24 mmol/L (20-31); Chloride 104 mmol/L (98-107); Lipase 27 U/L (12-53); Potassium 3.9 mmol/L (3.5-5.1); Sodium 145 mmol/L (136-145); Total Protein 7.9 g/dL (5.7-8.2)
[2025-02-02 19:48] LABS: Albumin 5.0 g/dL (3.2-4.8); Bilirubin, Total 1.3 mg/dL (0.2-1.0); Glucose 166 mg/dL (74-106)
[2025-02-02] MEDS: PANTOPRAZOLE 40 MG/10 ML VIAL INJ IV ONE (19:48)
[2025-02-02] MEDS: PROCHLORPERAZINE EDISYLATE 5 MG/ML 2ML VIAL IV ONE (19:48)
[2025-02-02 19:56] LABS: Anisocytosis Moderate
[2025-02-02 22:15] LABS: Urine Protein, UAD 1+ (Negative)
[2025-02-02] MEDS: SODIUM CHLORIDE 0.9% 1,000 ML IV ONE (23:05)
[2025-02-02] MEDS: METOCLOPRAMIDE HCL 5MG/ml INJ 2ml VIAL IV ONE (23:05)
[2025-02-02 23:49] LABS: Cannabinoid Screen, Urine Neg (NEGATIVE)
[2025-02-02 23:55] LABS: Amphetamine Screen, Urine Neg (NEGATIVE); Barbiturate Scree,Urine Neg (NEGATIVE); Benzodiazephine Screen, Urine Neg (NEGATIVE); Cocaine Screen, Urine Neg (NEGATIVE); Opiate Scree,Urine Neg (NEGATIVE); Phencyclidine Screen, Urine Neg (NEGATIVE)
[2025-02-03] MEDS ORDERED: METO5TAB67 PO (00:22)
[2025-02-03 01:20] VITALS: BP 143/89; PULSE 100; RESP 14; TEMP 98.7; O2SAT 100
== END 2025-02-03 01:25 | disposition home or self-care (01) ==
LOC: ER 17:32
DX: E10.43 Type 1 diabetes mellitus with diabetic autonomic (poly)neuropathy (principal); D64.9 Anemia, unspecified; K92.0 Hematemesis; Z90.49 Acquired absence of other specified parts of digestive tract; Z90.89 Acquired absence of other organs; Z79.899 Other long term (current) drug therapy
CPT/HCPCS: 36415; 74176; 80053; 80307; 81001; 82947; 83690; 85025; 96361; 96365; 96375; 99285; J0696; J0780; J2470; J2765; J7030; 82962

== ENCOUNTER 2025-03-03 18:19 | Emergency (ER) | payer OTHER ==
[~2025-03-03] VITALS: Ht 177.8 cm; Wt 93.8 kg
[~2025-03-03 18:19] MED LIST changes: +METO5TAB67 PO
[2025-03-03 19:06] LABS: Hematocrit 37.0 % (41.0-53.0); Hemoglobin 11.1 g/dL (13.5-17.5); Mean Corpuscular Hemoglobin 18.6 pg (28.0-32.0); Mean Corpuscular Volume 61.9 fL (80.0-100.0); Nucleated Red Blood Cells % 0.0 %
--- NOTE | 2025-03-03 19:12 | DVH ---
CLINICAL HISTORY: syncope TECHNIQUE: Single view of the chest was obtained. COMPARISON: XR CHEST 1 VIEW on DOS: 10/22/24, CHEST XR on DOS: 10/22/24 FINDINGS: The heart size and pulmonary vasculature are normal. The lungs are clear. IMPRESSION: NO ACUTE CARDIOPULMONARY PROCESS.
[2025-03-03] MEDS: ONDANSETRON HCL 4 MG/2 ML VIAL IV ONE (19:14)
[2025-03-03] MEDS: SODIUM CHLORIDE 0.9% 1,000 ML IV ONE (19:14)
[2025-03-03 19:27] LABS: Alanine Aminotransferase 23 U/L (7-40); Anion Gap 14 (5-15); BUN/Creatinine Ratio 24.6 (10.0-20.0); Calcium 9.9 mg/dL (8.7-10.4); Carbon Dioxide 26 mmol/L (20-31); Chloride 103 mmol/L (98-107); Potassium 4.2 mmol/L (3.5-5.1); Sodium 143 mmol/L (136-145); Total Protein 8.0 g/dL (5.7-8.2)
[2025-03-03 19:36] VITALS: PULSE 105; RESP 25; TEMP 98.1; O2SAT 98
[2025-03-03 19:38] LABS: Albumin 4.8 g/dL (3.2-4.8); Bilirubin, Total 1.6 mg/dL (0.2-1.0); Blood Urea Nitrogen 28 mg/dL (9-23); Glucose 320 mg/dL (74-106)
[2025-03-03 20:00] LABS: Alkaline Phosphatase 111 U/L (46-116); Lipase 24 U/L (12-53)
[2025-03-03] MEDS: PROCHLORPERAZINE EDISYLATE 5 MG/ML 2ML VIAL IV ONE (20:00)
[2025-03-03] MEDS: IOHEXOL 300 MG/ML 100ML BOTTLE IJ ONE (20:37)
[2025-03-03] MEDS: InsuLIN REG 1unit/0.01ml Soln (100units/ml) SC ONE (21:28)
[2025-03-03] MEDS: InsuLIN REG 1unit/0.01ml Soln (100units/ml) IV ONE (21:28)
--- NOTE | 2025-03-03 21:30 | DVH ---
CLINICAL HISTORY: abd pain TECHNIQUE: CT of the abdomen and pelvis was performed with intravenous contrast. 100 mL Omnipaque 300 injected This exam was performed according to our departmental dose optimization program. Up-to-date CT equipment and radiation dose reduction techniques are utilized as appropriate. CTDI: 21.45 DLP: 1 434.3 WID: COMPARISON: CT CT AB PEL WO CON-NO ORAL OR IV on DOS: 02/02/25 the report FINDINGS: Lower Thorax: Moderate circumferential wall thickening of the lower esophagus. Lung bases are clear. Normal-sized heart. Liver and Biliary system: Mild hepatomegaly with the right lobe of the liver measuring 18 cm craniocaudal. There Is mild hepatic steatosis with more focal steatosis in the periphery of segment 4 on series 5, image 48. Prior cholecystectomy. Major portal veins are patent. No biliary ductal dilatation. Spleen: Mild splenomegaly. Adrenal Glands and Kidneys: Unremarkable. Pancreas and Retroperitoneum: Unremarkable. Aorta and Major Vessels: Unremarkable. Bowel, Mesentery and Peritoneal space: Normal caliber small and large bowel. There is mild colonic diverticulosis. Normal appendix. No free air or fluid collection. Pelvis: Mild wall thickening of the urinary bladder. The prostate and seminal vesicles are grossly unremarkable. There is no pelvic lymphadenopathy. Abdominal wall and Osseous Structures: Tiny sclerotic foci in the proximal femurs and pelvis, likely bone islands. No destructive osseous lesion. Multilevel lower thoracic and lumbar spondylosis. IMPRESSION: 1. Moderate circumferential wall thickening of the lower esophagus likely esophagitis. Correlate with upper endoscopy if clinically indicated. 2. Mild hepatosplenomegaly. with mild hepatic steatosis. 3. Mild colonic diverticulosis. 4. Mild bladder wall thickening, nonspecific. Correlate with urinalysis if there is clinical concern for cystitis.
[2025-03-03 21:59] LABS: Anisocytosis Slight; Stomatocytes Few
[2025-03-03] MEDS: MAALOX PLUS or MAALOX 30 ML PO ONE (22:28)
[2025-03-03] MEDS: LIDOCAINE VISCOUS 2% 15ML UD MT ONE (22:28)
[2025-03-03 23:00] VITALS: BP 117/75; PULSE 105; RESP 11; O2SAT 100
--- NOTE | 2025-03-03 23:16 | ED.PDOC ---
GI ASSESSMENT HPI Comments Patient brought into bed 17 and from triage status post syncopal episode. Per father, patient has been having/dealing with vomiting intermittently over the last year. Has significant episodes over the last month. Father states they have been to urgent Care in the past for hydration and nausea medicines but today patient has started vomiting blood so they proceed to the emergency department. No new foods no new medications. Patient has type 1 diabetic. Upon questioning patient states he has not been able take his nausea medicines as he throws up the pills. Patient states he has seen GI specialist once and has follow up appointment on the 11 of March. Chief Complaint: Nausea/Vomiting Time Seen by MD: 18:27 Primary Care Provider: DENISE/DR NIXON Reviewed Notes: Nurses Notes Allergies: Coded Allergies: NO KNOWN ALLERGIES (Unverified , 11/06/10) Home Meds Active Scripts Metoclopramide Hcl (Reglan) 5 Mg Tab, 5 MG PO TID PRN, #20 TAB Prov:TORREY MACK 02/03/25 Sucralfate (CARAFATE SUSP) 1 Gm/10 Ml Ss, 10 ML PO QID PRN, #1200 ML 3 Refills Prov:PATRICK JIMENES MD 01/28/25 Naloxone HCl (Narcan) 4 Mg/0.1 Ml Spr, 4 MG NA ONCE for 1 Day, #1 SPRAY Prov:KRISTIN ALAS DO 01/06/25 Hydrocodone-Acetaminophen (Hydrocodone Bitartrate/AC 5-325 mg) 1 Tab Tab, 1 TAB PO Q6HPRN PRN, #12 TAB 0 Refills Take for severe pain. Prov:KRISTIN ALAS DO 01/06/25 Sucralfate (CARAFATE SUSP) 1 Gm/10 Ml Ss, 10 ML PO QID, #1200 ML 3 Refills Prov:KRISTIN ALAS DO 01/06/25 Lidocaine HCl (Mouth-Throat) (Lidocaine HCl Viscous) 2 % Maddy, 2 % MT TID for 30 Days, #150 ML 2 Refills Tkae 10ml three times a day and swallow to help with pain. Prov:KRISTIN ALAS DO 01/06/25 Pantoprazole Sodium Sesquihydr (Protonix) 40 Mg Tab, 40 MG PO BID, #60 TAB 1 Refill Prov:KRISTIN ALAS DO 01/06/25 Reported Medications [Unk Pain Med] No Conflict Check 11/14/10 [Unknown Abx] No Conflict Check 11/14/10 Information Source: Patient Mode of Arrival: Ambulatory Past Medical History PAST MEDICAL HISTORY: DM Surgical History: Cholecystectomy, Tonsillectomy Family History Family History: No family hx of DM Social History Smoker: Non-Smoker Alcohol: Denies ETOH Use Drugs: Denies Drug Use Lives In: Home Constitutional: denies: chills, diaphoresis, fatigue, fever, malaise, sweats, weakness, others EENTM: denies: blurred vision, double vision, ear bleeding, ear discharge, ear drainage, ear pain, ear ringing, eye pain, eye redness, hearing loss, mouth pain, mouth swelling, nasal discharge, nose bleeding, nose congestion, nose pain, photophobia, tearing, throat pain, throat swelling, voice changes, others Respiratory: denies: cough, hemoptysis, orthopnea, SOB at rest, shortness of breath, SOB with excertion, stridor, wheezing, others Cardiovascular: reports: diaphoresis, syncope; denies: chest pain, dizzy spells, Dyspnea on exertion, edema, irregular heart beat, left arm pain, lightheadedness, palpitations, PND, others Gastrointestinal: reports: nausea, vomiting; denies: abdomen distended, abdominal pain, blood streaked bowels, constipated, diarrhea, dysphagia, difficulty swallowing, hematemesis, melena, poor appetite, poor fluid intake, rectal bleeding, rectal pain, others Genitourinary: denies: burning, dysuria, flank pain, frequency, hematuria, incontinence, penile discharge, penile sore, pain, testicle pain, testicle swelling, urgency, others Neurological: denies: dizziness, fainting, headache, left sided numbness, left sided weakness, numbness, paresthesia, pre-existing deficit, right sided numbness, right sided weakness, seizure, speech problems, tingling, tremors, weakness, others Musculoskeletal: denies: back pain, gout, joint pain, joint swelling, muscle pain, muscle stiffness, neck pain, others Integumetry: denies: bruises, change in color, change in hair/nails, dryness, laceration, lesions, lumps, rash, wounds, others Physical Exam General Appearance: Moderate Distress, No Apparent Distress HEENT: Normal ENT Inspection, Pharynx Normal, TMs Normal Neck: Full Range of Motion, Non-Tender, Normal, Normal Inspection Respiratory: Chest Non-Tender, Lungs Clear, No Accessory Muscle Use, No Respira tory Distress, Normal Breath Sounds Cardiovascular: No Edema, No JVD, No Murmur, No Gallop, Normal Peripheral Pulses, Regular Rate/Rhythm Breast Exam: Deferred Gastrointestinal: No Organomegaly, Non Tender, No Pulsatile Mass, Normal Bowel Sounds, Soft Genitalia: Deferred Pelvic: Deferred Rectal: Deferred Extremities: No calf tenderness, Normal capillary refill, Normal inspection, Normal range of motion, Non-tender, No pedal edema Musculoskeletal : Apperance: Normal Neurologic: Alert, air brake mechanic II-XII nml as Tested, No Motor Deficits, Normal Affect, Normal Mood, No Sensory Deficits Cerebellar Function: Normal Reflexes: Normal Skin: Dry, Normal Color, Warm Lymphatic: No Adenopathy Was a procedure done? Was a procedure done?: No GI differential Dx Differential Diagnosis: Gastritis/PUD, Gastroenteritis, Electrolyte Imbalance, Food Poisoning X-Ray, Labs, Meds, VS Vital Signs Date Time Temp Pulse Resp B/P (MAP) Pulse Ox O2 Delivery O2 Flow Rate FiO2 03/03/25 19:36 105 25 98 Room Air* 0 21 03/03/25 19:36 98.1 105 25 125/83 (97) 98 98.1 03/03/25 19:16 100 Room Air* 0 21 03/03/25 18:39 98.7 109 17 135/95 (108) 100 98.7 03/03/25 18:20 97.3 115 15 131/97 100 97.3 Lab Test 03/03/25 18:48 Range/Units White Blood Count 7.8 4.4-10.8 10^3/uL Red Blood Count 5.98 H 4.5-5.90 10^6/uL Hemoglobin 11.1 L 13.5-17.5 g/dL Hematocrit 37.0 L 41.0-53.0 % Mean Corpuscular Volume 61.9 L 80.0-100.0 fL Mean Corpuscular Hemoglobin 18.6 L 28.0-32.0 pg Mean Corpuscular Hemoglobin Concent 30.1 L 32.0-36.0 g/dL Red Cell Distribution Width 19.1 H 11.8-14.3 % Platelet Count 274 140-450 10^3/uL Mean Platelet Volume 8.9 6.9-10.8 fL Neutrophils (%) (Auto) 78.4 37.0-80.0 % Lymphocytes (%) (Auto) 11.9 10.0-50.0 % Monocytes (%) (Auto) 9.6 0.0-12.0 % Eosinophils (%) (Auto) 0.0 0.0-7.0 % Basophils (%) (Auto) 0.1 0.0-2.0 % Neutrophils # (Auto) 6.1 1.6-8.6 10 ^3/uL Lymphocytes # (Auto) 0.9 0.4-5.4 10 ^3/uL Monocytes # (Auto) 0.7 0-1.3 10 ^3/uL Eosinophils # (Auto) 0 0-0.8 10 ^3/uL Basophils # (Auto) 0 0-0.2 10 ^3/uL Nucleated Red Blood Cells 0.0 % Platelet Estimate Adequate Large Platelets Few Hypochromasia (manual) Marked Anisocytosis (manual) Slight Microcytosis Marked Stomatocytes Few Sodium Level 143 136-145 mmol/L Potassium Level 4.2 3.5-5.1 mmol/L Chloride Level 103 98-107 mmol/L Carbon Dioxide Level 26 20-31 mmol/L Anion Gap 14 5-15 Blood Urea Nitrogen 28 H 9-23 mg/dL Creatinine 1.14 0.700-1.30 mg/dL Glomerular Filtration Rate Calc 86 >90 mL/min BUN/Creatinine Ratio 24.6 H 10.0-20.0 Serum Glucose 320 H 74-106 mg/dL Calcium Level 9.9 8.7-10.4 mg/dL Total Bilirubin 1.6 H 0.2-1.0 mg/dL Aspartate Amino Transferase (AST) 14 13-40 U/L Alanine Aminotransferase (ALT) 23 7-40 U/L Alkaline Phosphatase 111 46-116 U/L Total Protein 8.0 5.7-8.2 g/dL Albumin 4.8 3.2-4.8 g/dL Lipase 24 12-53 U/L Beta-Hydroxybutyric Acid 1.677 H < 0.4 mmol/L Plasma/Serum Blood Alcohol < 3.0 <10 mg/dL Current Medications Medications (Trade) Dose Ordered Sig/Sasha Route Start Time Stop Time Status Last Admin Sodium Chloride 1,000 ml @ 1,000 mls/hr Q1H ONCE IV 03/03/25 18:45 03/03/25 19:44 DC 03/03/25 19:14 Ondansetron HCl (Zofran) 4 mg ONCE ONCE IV 03/03/25 18:45 03/03/25 18:46 DC 03/03/25 19:14 Prochlorperazine Edisylate (Compazine Inj) 5 mg ONCE ONCE IV 03/03/25 20:00 03/03/25 20:01 DC 03/03/25 20:00 Insulin Human Regular (InsuLIN R) 10 units ONCE ONCE SC 03/03/25 21:30 03/03/25 21:31 DC 03/03/25 21:28 Lidocaine HCl (Xylocaine 2% Viscous) 5 ml ONCE ONCE MT 03/03/25 22:15 03/03/25 22:16 DC 03/03/25 22:28 Al Hydrox/Mg Hydrox/Simethicone (Maalox Plus) 30 ml ONCE ONCE PO 03/03/25 22:15 03/03/25 22:16 DC 03/03/25 22:28 X-Ray, Labs, Meds, VS Comment Spoke with Dr. soto, [facility] on-call. He was made aware of patient's status. He is recommend patient has started taking the Reglan on a regular basis not as needed. Make sure he follows up with GI specialist next week. Advised that patient go to urgent care for IV hydration and antiemetics as needed. Time of 1ST Reevaluation: 23:15 Reevaluation 1ST: Unchanged Patient Education/Counseling: Diagnosis, Treatment, Need For Follow Up (Follow up with GI specialist as scheduled on March 11.) Family Education/Counseling: Diagnosis SEPSIS Sepsis Screen Date sepsis recognized/suspect: Mar 03, 2025 Time Sepsis recognized/suspect: 2007 Recent Procedure: No On Antibiotic Therapy: No Respiratory Rate >20: Yes Heart Rate >90: Yes Temp<36 C (96.8 F) or >38.3 C: No SBP <90 or MAP <65 mmHG: No New Acute Mental Status Change: No Is the patient on CPAP, BIPAP,: No Physician Orders Chest Portable (03/03/25 18:37) Urinalysis (03/03/25 18:37) Drug Screen (03/03/25 18:37) Ct Ab Pel With Iv Con Only (03/03/25 19:26) Vital Signs Date Time Temp Pulse Resp B/P (MAP) Pulse Ox O2 Delivery O2 Flow Rate FiO2 03/03/25 19:36 105 25 98 Room Air* 0 21 03/03/25 19:36 98.1 105 25 125/83 (97) 98 98.1 03/03/25 19:16 100 Room Air* 0 21 03/03/25 18:39 98.7 109 17 135/95 (108) 100 98.7 03/03/25 18:20 97.3 115 15 131/97 100 97.3 Laboratory Tests Test 03/03/25 18:48 White Blood Count 7.8 10^3/uL (4.4-10.8) Medications Medications Dose Ordered Sig/Sasha Route Start Time Stop Time Status Last Admin Dose Admin Al Hydrox/Mg Hydrox/Simethicone 30 ml ONCE ONCE PO 03/03/25 22:15 03/03/25 22:16 DC 03/03/25 22:28 Insulin Human Regular 10 units ONCE ONCE SC 03/03/25 21:30 03/03/25 21:31 DC 03/03/25 21:28 Lidocaine HCl 5 ml ONCE ONCE MT 03/03/25 22:15 03/03/25 22:16 DC 03/03/25 22:28 Ondansetron HCl 4 mg ONCE ONCE IV 03/03/25 18:45 03/03/25 18:46 DC 03/03/25 19:14 Prochlorperazine Edisylate 5 mg ONCE ONCE IV 03/03/25 20:00 03/03/25 20:01 DC 03/03/25 20:00 Sodium Chloride 1,000 ml @ 1,000 mls/hr Q1H ONCE IV 03/03/25 18:45 03/03/25 19:44 DC 03/03/25 19:14 Departure 1 Departure Time of Disposition: 23:13 Impression: Primary Impression: Diabetic gastroparesis associated with type 1 diabetes mellitus Disposition: 01 HOME / SELF CARE / HOMELESS Condition: Stable e-Prescriptions Metoclopramide Hcl (Reglan) 5 Mg Tab 5 MG PO TID, #60 TAB Prov: TORREY MACK 03/03/25 Discharged With: Self Critical Care Note Critical Care Time?: No Stability Stability form required: No Heart Score Heart Score: Heart Score Response (Comments) Value History N/A 0 EKG N/A 0 Age N/A 0 Risk Factors N/A 0 Troponin N/A 0 Total 0 TORREY MACK Mar 03, 2025 23:16
== END 2025-03-03 23:37 | disposition home or self-care (01) ==
LOC: ER 18:19
DX: E10.43 Type 1 diabetes mellitus with diabetic autonomic (poly)neuropathy (principal); Z79.899 Other long term (current) drug therapy; Z90.49 Acquired absence of other specified parts of digestive tract; Z90.89 Acquired absence of other organs
CPT/HCPCS: 36415; 71045; 74177; 80053; 80320; 82010; 82947; 83690; 85025; 96361; 96372; 96374; 96375; 99285; J0780; J1815; J2405; J7030; Q9967; 82962